=== PATIENT | male | born 1985 | race American Indian/Alaskan Native ===

== ENCOUNTER 2023-04-14 10:29 | Outpatient (CLI) | payer OTHER ==
[2023-04-14] MEDS ORDERED: iohexol 350MG/ML 100ml bottle IV ONE (10:51)
[2023-04-14] MEDS ORDERED: iohexol 350 MG/ML 50ML vial IV ONE (10:51)
== END 2023-04-14 23:59 | disposition home or self-care (01) ==
LOC: RAD 10:29
PROVIDERS: ATTEND Family Medicine
DX: K57.30 Diverticulosis of large intestine without perforation or abscess without bleeding (principal); J90 Pleural effusion, not elsewhere classified; K31.89 Other diseases of stomach and duodenum; N15.1 Renal and perinephric abscess; K44.9 Diaphragmatic hernia without obstruction or gangrene; K82.8 Other specified diseases of gallbladder; N28.89 Other specified disorders of kidney and ureter; I70.0 Atherosclerosis of aorta; K59.00 Constipation, unspecified; K42.9 Umbilical hernia without obstruction or gangrene
CPT/HCPCS: 74177; J3490; Q9967